=== PATIENT | female | born 1950 | race Caucasian/White ===

== ENCOUNTER 2016-11-25 14:18 | Emergency (ER) | payer MEDICARE ==
[~2016-11-25] VITALS: Ht 149.9 cm; Wt 85.0 kg
[2016-11-25 14:20] VITALS: BP 209/102; PULSE 71; RESP 16; TEMP 98.4; O2SAT 98
[2016-11-25 15:30] VITALS: BP 145/67; PULSE 77
--- NOTE | 2016-11-25 17:27 | PD ---
HPI Chief Complaint: Pain: Acute or Chronic Time Seen by Provider: 17:16 Travel History International Travel<30 days: No Contact w/Intl Traveler<30days: No Traveled to known affect area: No History of Present Illness HPI 66-year-old female who is Romanian-speaking and prefers to use her family members for translation, here for evaluation of left leg pain and bilateral arm pain. The patient has history of 2 DVTs in the past after long road trips, and is concerned that she may have a DVT today. Patient has had bilateral arm pain and points to her biceps for the last week. Her left leg pain which is located in her left calf and behind her left leg has been going on for the last 4 days. Pain is been intermittent, currently pain is mild. She describes the pain as burning and feels somewhat similar to when she had a DVT in the past. No dyspnea. No trauma. She states her left leg also feels a little bit numb. No midline back pain. PFSH Past Medical History Cardiovascular Problems: Yes (HTN) Social History Tobacco Use: No Allergies-Medications (Allergen,Severity, Reaction): Coded Allergies: Penicillins (Verified Allergy, Unknown, 11/25/16) Reported Meds & Prescriptions Reported Meds & Active Scripts Active Reported [place] Thyroid (Thyroid) 15 Mg Tab 15 Mg PO DAILY Prevacid (Lansoprazole) 30 Mg Capdr 30 Mg PO DAILY Benicar Hct (Olmesartan-Hydrochlorothiazide) 40-25 mg Tab 1 Tab PO DAILY Aspirin Low Dose (Aspirin) 81 Mg Chew 81 Mg CHEW DAILY Review of Systems Except as stated in HPI: all other systems reviewed are Neg Physical Exam Narrative GENERAL: Well-developed, well-nourished, comfortable, no apparent distress. SKIN: Focused skin assessment warm/dry. No rash or erythema. HEAD: Atraumatic. Normocephalic. EYES: Pupils equal and round. No scleral icterus. No injection or drainage. ENT: Mucous membranes pink and moist. NECK: Trachea midline. No JVD. CARDIOVASCULAR: Regular rate and rhythm. Distal pulses brisk and equal bilaterally. RESPIRATORY: No accessory muscle use. Clear to auscultation. Breath sounds equal bilaterally. MUSCULOSKELETAL: No obvious deformities. No clubbing. No cyanosis. No edema. Mild left calf tenderness without edema or skin color changes. Mild bilateral bicep tenderness without skin color changes were edema. All compartments in bilateral upper and lower extremities are supple. No midline vertebral step- off or tenderness. NEUROLOGICAL: Awake and alert. No obvious cranial nerve deficits. Motor grossly within normal limits. Normal speech. PSYCHIATRIC: Appropriate mood and affect; insight and judgment normal. Data Data Last Documented VS Vital Signs Date Time Temp Pulse Resp B/P (MAP) Pulse Ox O2 Delivery O2 Flow Rate FiO2 11/25/16 18:00 97 Room Air 11/25/16 17:24 78 20 11/25/16 14:20 98.4 Orders Orders Complete Blood Count With Diff (11/25/16 17:23) Comprehensive Metabolic Panel (11/25/16 17:23) Prothrombin Time / Inr (Pt) (11/25/16:23) Act Partial Throm Time (Ptt) (11/25/16:23) Iv Access Insert/Monitor (11/25/16 17:23) Ecg Monitoring (11/25/16 17:23) Oximetry (11/25/16 17:23) Electrocardiogram (11/25/16:23) Us Leg Venous Doppler (11/25/16 ) Us Arm Venous Doppler Bilat (11/25/16 ) Creatine Kinase (Cpk) (11/25/16 17:45) Ed Discharge Order (11/25/16 19:04) Labs Laboratory Tests Test 11/25/16 17:45 White Blood Count 6.4 TH/MM3 Red Blood Count 4.36 MIL/MM3 Hemoglobin 14.0 GM/DL Hematocrit 40.7 % Mean Corpuscular Volume 93.4 FL Mean Corpuscular Hemoglobin 32.0 PG Mean Corpuscular Hemoglobin Concent 34.3 % Red Cell Distribution Width 14.3 % Platelet Count 292 TH/MM3 Mean Platelet Volume 8.7 FL Neutrophils (%) (Auto) 54.9 % Lymphocytes (%) (Auto) 35.3 % Monocytes (%) (Auto) 8.1 % Eosinophils (%) (Auto) 1.1 % Basophils (%) (Auto) 0.6 % Neutrophils # (Auto) 3.5 TH/MM3 Lymphocytes # (Auto) 2.2 TH/MM3 Monocytes # (Auto) 0.5 TH/MM3 Eosinophils # (Auto) 0.1 TH/MM3 Basophils # (Auto) 0.0 TH/MM3 CBC Comment DIFF FINAL Differential Comment Prothrombin Time 10.2 SEC Prothromb Time International Ratio 0.9 RATIO Activated Partial Thromboplast Time 24.8 SEC Blood Urea Nitrogen 16 MG/DL Creatinine 0.76 MG/DL Random Glucose 78 MG/DL Total Protein 7.6 GM/DL Albumin 3.8 GM/DL Calcium Level 8.9 MG/DL Alkaline Phosphatase 95 U/L Aspartate Amino Transf (AST/SGOT) 30 U/L Alanine Aminotransferase (ALT/SGPT) 24 U/L Total Bilirubin 0.4 MG/DL Sodium Level 138 MEQ/L Potassium Level 3.9 MEQ/L Chloride Level 104 MEQ/L Carbon Dioxide Level 27.8 MEQ/L Anion Gap 6 MEQ/L Estimat Glomerular Filtration Rate 76 ML/MIN Total Creatine Kinase 90 U/L [facility] Medical Decision Making Medical Screen Exam Complete: Yes Emergency Medical Condition: Yes Interpretation(s) EKG: Sinus, rate 60, leftward axis, normal intervals, Q waves in lateral and septal leads, no acute ischemic abnormality. Differential Diagnosis Musculoskeletal pain, DVT, rhabdomyolysis, osteoarthritis Narrative Course Vital signs show heart rate 77, blood pressure 145/67, pulse ox 98% on room air , oral temp of 98.4F. CBC is unremarkable. CMP is unremarkable. Bilateral upper extremity venous duplex read as normal exam. No evidence of DVT. Left lower extremity venous duplex read as normal exam. No DVT. The patient and the patient's family were made aware of all findings. She does have Q waves on her EKG in her septal and lateral leads. She reports that she was seen by binder fixer in August of this year and had a cardiac catheter in [facility] that was reportedly normal. Her bilateral arms and legs are supple and there are no signs of cellulitis. At this point she is stable for discharge home with further workup as an outpatient. She was informed on when to return to the emergency department. She verbalizes understanding and agreement with plan. Diagnosis Primary Impression: Left leg pain Additional Impression: Bilateral arm pain Referrals: [facility] 3 days Primary Care Physician 3 days Additional Instructions: Follow-up with a primary care physician this week. Return to the emergency department for worsening symptoms or any other concerns. Disposition: 01 DISCHARGE HOME Condition: Stable Tyler Rodgers MD Nov 25, 2016 17:27
[2016-11-25] MEDS ORDERED: ASPI81CH37 CHEW (17:35)
[2016-11-25] MEDS ORDERED: PREV30CA11 PO (17:35)
[2016-11-25] MEDS ORDERED: THYR15 PO (17:35)
[2016-11-25] MEDS ORDERED: BENI40TA7 PO (17:35)
[2016-11-25 18:00] VITALS: O2SAT 97
[2016-11-25 18:03] LABS: AUTOMATED NEUTROPHIL # 3.5 TH/MM3 (1.8-7.7); BASOPHIL % 0.6 % (0.0-2.0); EOSINOPHIL # 0.1 TH/MM3 (0-0.4); EOSINOPHIL % 1.1 % (0.0-4.0); HEMATOCRIT 40.7 % (35.0-46.0); HEMO FLAGS DIFF FINAL; LYMPH % 35.3 % (9.0-44.0); LYMPHOCYTE # 2.2 TH/MM3 (1.0-4.8); MEAN CELL VOLUME 93.4 FL (80.0-100.0); MEAN CORPUSCULAR HGB CONC 34.3 % (32.0-36.0); MONO % 8.1 % (0.0-8.0); NEUT % 54.9 % (16.0-70.0); PLATELET COUNT 292 TH/MM3 (150-450); RED BLOOD COUNT 4.36 MIL/MM3 (4.00-5.30); RED CELL DISTRIBUTION WIDTH 14.3 % (11.6-17.2); WHITE BLOOD COUNT 6.4 TH/MM3 (4.0-11.0)
[2016-11-25 18:24] LABS: ALKALINE PHOSPHATASE 95 U/L (45-117); ALT (GPT) 24 U/L (10-53); ANION GAP 6 MEQ/L (5-15); AST (GOT) 30 U/L (15-37); BICARBONATE 27.8 MEQ/L (21.0-32.0); BLOOD UREA NITROGEN 16 MG/DL (7-18); CHLORIDE 104 MEQ/L (98-107); GLOMERULAR FILTRATION RATE 76 ML/MIN (>89); SODIUM (NA) 138 MEQ/L (136-145); TOTAL BILIRUBIN ADULT 0.4 MG/DL (0.2-1.0)
[2016-11-25 18:25] LABS: CREATINE KINASE 90 U/L (26-192); POTASSIUM 3.9 MEQ/L (3.5-5.1)
[2016-11-25 18:30] LABS: APTT (PATIENT) 24.8 SEC (24.3-30.1); INTERNATIONAL NORMALIZED RATIO 0.9 RATIO; PROTHROMBIN TIME - PATIENT 10.2 SEC (9.8-11.6)
--- NOTE | 2016-11-25 18:45 | RADRPT ---
EXAM DATE/TIME: 11/25/2016 17:55 [facility] COMPARISON: No previous studies available for comparison. INDICATIONS : Left leg pain. MEDICAL HISTORY : Hypertension. Deep vein thrombosis. SURGICAL HISTORY : Unable to obtain further surgical information. ENCOUNTER: Initial ACUITY: 4 - 6 days PAIN SCORE: 5/10 LOCATION: Left leg. TECHNIQUE: Venous ultrasound of the leg was performed from the inguinal ligament to the proximal calf. Real-negar e, color Doppler and spectral tracing, compression and augmentation techniques were used. FINDINGS: There is normal compressibility of the deep venous system from the inguinal region to the proximal ca lf. No echogenic clot is seen in the lumen of the common femoral, femoral, popliteal, and posterior tibial veins. There is a normal response of the venous system to proximal and distal augmentation an d respiration. CONCLUSION: Normal examination. No evidence of DVT Homero Long MD on November 25, 2016 at 18:43 Board Certified Radiologist. This report was verified electronically.
--- NOTE | 2016-11-25 18:50 | RADRPT ---
EXAM DATE/TIME: 11/25/2016 18:06 [facility] COMPARISON: No previous studies available for comparison. INDICATIONS : Bilateral arm pain. MEDICAL HISTORY : Hypertension. Deep magaly thrombosis. SURGICAL HISTORY : None. Unable to obtain further surgical information. ENCOUNTER: Initial ACUITY: 1 week PAIN SCORE: 5/10 LOCATION: Bilateral arms. FINDINGS: RIGHT UPPER EXTREMITY: There is spontaneous flow documented in the brachial, basilic, cephalic, axillary, and subclavian vei ns. The vessels are compressible and augmentation response is documented. No filling defects are se en. The flow is phasic with respiration. Direction of flow in the jugular vein is caudal. LEFT UPPER EXTREMITY: There is spontaneous flow documented in the brachial, basilic, cephalic, axillary, and subclavian vei ns. The vessels are compressible and augmentation response is documented. No filling defects are se en. The flow is phasic with respiration. Direction of flow in the jugular vein is caudal. CONCLUSION: Normal examination. No evidence of DVT Homero Long MD on November 25, 2016 at 18:47 Board Certified Radiologist. This report was verified electronically.
--- NOTE | 2016-11-26 11:23 | EKG ---
Date Performed: 11/25/2016 Time Performed: 17:48:12 PTAGE: 66 years EKG: Sinus rhythm POSSIBLE LEFT ATRIAL ENLARGEMENT POSSIBLE LEFT VENTRICULAR HYPERTROPHY POSSIBLE SEPTAL MYOCARDIAL IN FARCTION POSSIBLE LATERAL MYOCARDIAL INFARCTION ABNORMAL ECG NO PREVIOUS TRACING DOCTOR: Eugene Thrasher Interpretating Date/Time 11/26/2016 11:21:42
== END 2016-11-25 19:08 | disposition home or self-care (01) ==
LOC: NEPD 14:18
DX: M79.605 Pain in left leg (principal); M79.601 Pain in right arm; M79.602 Pain in left arm; I10 Essential (primary) hypertension; R94.31 Abnormal electrocardiogram [ECG] [EKG]
CPT/HCPCS: 80053; 82550; 85025; 85610; 85730; 93005; 93970; 93971; 99285